=== PATIENT | female | born 1995 ===

== ENCOUNTER 2023-05-12 11:24 | Emergency (ER) | payer OTHER, SELFPAY ==
--- OUTSIDE RECORDS SUMMARY | 2023-05-12 11:28 | XMS REPORT | Continuity of Care Document ---
:1995 Author Organization [facility] t Address [address] [place] [id number] [place] [id number] Care Team Providers Name Role Phone IBRAHIMA MARTEL Attending Clinician Unavailable Problems This patient has no known problems. Allergies, Adverse Reactions, Alerts Allergy Allergy Status Severity Reaction(s) Onset Inactive Treating Comm ents Source Name Type Date Date Clinician HYDROCOD DRUG Active Hives [facility] ONE-ACET 3-20 ity of AMINOPHE 00:00: [address] P[place]IC[place] Drug Active Hives [facility] INS Class 3-20 ity of 00:00: [address] CODEINE DRUG Active Rash 2015- [facility] INGREDI 5-28 ity of 00:00: [address] HYDROMOR DRUG Active Hives [facility] PHONE 5-28 ity of (BULK) 00:00: [address] Medications This patient has no known medications. Procedures This patient has no known procedures. Results This patient has no known results.
[2023-05-12 12:03] LABS: Specific Gravity 1.026 (1.005-1.030)
[2023-05-12 12:16] LABS: Specific Gravity 1.026 (1.005-1.030); Urine Bacteria 20-50 /HPF (<20); Urine Bilirubin NEGATIVE (Negative); Urine Blood 3+ (OVER) (Negative); Urine Clarity Extremely Turbid (Clear); Urine Color Yellow (Yellow); Urine Glucose NEGATIVE (Negative); Urine Mucus 4+ /HPF (None Seen); Urine Protein 1+ (Negative); Urine Urobilinogen Normal (Normal); Urine pH 5.5 (5.0-7.0)
[2023-05-12 12:40] LABS: Absolute Lymphocytes (CBC) 1.7 K/uL (0.7-4.9); Hematocrit 43.2 % (36.0-45.0); Lymphocytes % 20.2 % (15.3-44.8); MCV 90.3 fL (80-100); MPV 10.5 fL (7.6-11.3); RBC Red Blood Cell Count 4.78 M/uL (3.86-4.86)
[2023-05-12 12:57] LABS: Potassium 3.9 mEq/L (3.5-5.1)
--- NOTE | 2023-05-12 15:57 | RAD REPORT ---
EXAM DESCRIPTION: US - Transvaginal Study Probe - 05/12/2023 2:28 pm CLINICAL HISTORY: VAGINAL BLEEDING Pelvic pain. COMPARISON: <Comparisons> FINDINGS: The uterus is normal in size, shape and echotexture. The uterus measures 6.2 x 5.1 x 3.2 c m. The endometrial stripe measures 5 mm, normal. Both ovaries are normal in size, shape and echotexture. The right ovary measures 3.8 x 3.3 x 2.3 cm. The left ovary measures 2.4 x 2.9 x 1.8 cm. No ovarian or parovarian lesions. No adnexal masses. Normal Doppler blood flow was demonstrated to both ovaries. No significant pelvic ascites. IMPRESSION: Unremarkable study.
--- NOTE | 2023-05-12 16:00 | EDPHYS ---
Physician Documentation [facility] Name: Becky Moore Age: 28 yrs Sex: Female : 1995 Arrival Date: 05/12/2023 Time: 11:24 Bed 10 Private MD: ED Physician Ruben Choi HPI: 05/12 13:36 This 28 yrs old Female presents to ER via Ambulatory with complaints of Vaginal sb4 Bleeding, + Preg <12wks. 13:36 The patient presents to the emergency department with vaginal bleeding, that is light, sb4 with no clots. The estimated gestational age is 2 weeks. course: care: none, Leakage of Fluid: none appreciated, Ultrasound: the patient has not had an ultrasound, Risk/complications: no obvious risks or complications are appreciated. Previous pregnancies:. Associated signs and symptoms: The patient has no apparent associated signs or symptoms. The patient has not recently seen a physician. 28 year old female states she had 2 positive tests last week and started bleeding this morning. She states she has been spotting but today she had dark red blood that has slowly turned into bright red blood. She denies any abdominal pain. She states she has had several miscarriages before, estimates at least 6 or 7. 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 - Social history:: Smoking status: Patient reports the use of cigarette tobacco products. ROS: 13:36 Constitutional: Negative for fever, chills, and weight loss, Eyes: Negative for injury, sb4 pain, redness, and discharge, Cardiovascular: Negative for chest pain, palpitations, and edema, Respiratory: Negative for shortness of breath, cough, wheezing, and pleuritic chest pain, Abdomen/GI: Negative for abdominal pain, nausea, vomiting, diarrhea, and constipation, MS/Extremity: Negative for injury and deformity, Skin: Negative for injury, rash, and discoloration. 13:36 : Positive for vaginal bleeding, Negative for urinary symptoms, urinary frequency, hematuria. 13:36 All other systems are negative. Exam: 13:36 Constitutional: This is a well developed, well nourished patient who is awake, alert, sb4 and in no acute distress. Head/Face: Normocephalic, atraumatic. Eyes: Extra-ocular motions intact. Periorbital areas with no swelling, redness, or edema. ENT: Mucous membranes moist. Cardiovascular: Regular rate and rhythm with a normal S1 and S2. Respiratory: Lungs have equal breath sounds bilaterally, clear to auscultation and percussion. No rales, rhonchi or wheezes noted. No increased work of breathing, no retractions or nasal flaring. Abdomen/GI: Soft, non-tender, no distension. Skin: Warm, dry with normal turgor. Normal color with no rashes, no lesions, and no evidence of cellulitis. MS/ Extremity: Pulses equal, no cyanosis. Neurovascular intact. Full, normal range of motion. Neuro: Awake and alert, GCS 15, oriented to person, place, time, and situation. Cranial nerves II-XII grossly intact. Motor strength 5/5 in all extremities. Sensory grossly intact. Cerebellar exam normal. Normal gait. Vital Signs: 11:38 BP 131 / 89; Pulse 75; Resp 18 S; Temp 97.2(TE); Pulse Ox 99% on R/A; aa5 13:18 BP 128 / 82; Pulse 76; Resp 16; Pulse Ox 99% ; ko1 16:06 BP 113 / 93; Pulse 85; Resp 16 S; Pulse Ox 100% on R/A; kc6 MDM: 11:27 Patient medically screened. sb4 13:36 Differential diagnosis: threatened Ab, inevitable Ab, missed Ab, ectopic . sb4 16:02 Data reviewed: vital signs, nurses notes, lab test result(s), radiologic studies, I sb4 have discussed the patient's presentation/case with the attending Emergency Department Physician; and as a result, I will discharge patient. Care significantly affected by the following Social Determinants of Health: Poor access to healthcare and/or lack of insurance. Counseling: I had a detailed discussion with the patient and/or guardian regarding: the historical points, exam findings, and any diagnostic results supporting the discharge/admit diagnosis, lab results, radiology results, the need for outpatient follow up, an OB/Gyne specialist, to return to the emergency department if symptoms worsen or persist or if there are any questions or concerns that arise at home. 16:02 Discussion of test interpretation with radiology: I had a discussion with radiology sb4 regarding a test interpretation. ultrasound not showing any signs of intrauterine . ED course: Discussed the lab findings and radiology results with patient. She understands that her ultrasound did not show any clear signs of a viable . She understands to follow-up in 48 hours to get her beta-hCG tested. She has an appointment with [facility] tomorrow.. 05/12 11:43 Order name: Abo/rh Typing; Complete Time: 13:20 sb4 05/12 11:43 Order name: Basic Metabolic Panel; Complete Time: 13:20 sb4 05/12 11:43 Order name: CBC with Diff; Complete Time: 13:20 sb4 05/12 11:43 Order name: Test, Urine; Complete Time: 12:04 sb4 05/12 11:43 Order name: Quantitative Hcg; Complete Time: 13:20 sb4 05/12 11:43 Order name: Urinalysis w/ reflexes; Complete Time: 12:33 sb4 05/12 14:30 Order name: Transvaginal Study Probe; Complete Time: 15:59 [facility] 05/12 11:43 Order name: IV Saline Lock; Complete Time: 12:49 sb4 05/12 11:43 Order name: Labs collected and sent; Complete Time: 12:28 sb4 Administered Medications: No medications were administered Point of Care Testing: Urine : 12:50 hCG Reading: Positive; ko1 Disposition: 16:32 Co-signature as Attending Physician, Ruben Choi MD I agree with the assessment and kdr plan of care. Disposition Summary: 05/12/23 16:00 Discharge Ordered Location: Home sb4 Problem: new sb4 Symptoms: are unchanged sb4 Condition: Stable sb4 Diagnosis - Other specified abnormal uterine and vaginal bleeding sb4 Followup: sb4 - With: Private Physician - When: 48 Hours - Reason: Repeat Beta-HCG (48 Hours) Forms: - Medication Reconciliation Form sb4 - Thank You Letter sb4 - Antibiotic Education sb4 - Prescription Opioid Use sb4 - Patient Portal Instructions sb4 Signatures: Dispatcher MedHoGallup Indian Medical CenterRuben Elder MD MD kdr Calderon, Audri, RN RN aa5 Dora Linton, PAAlvinoC PAUnique sb4 Corrections: (The following items were deleted from the chart) 14:30 13:21 Transvaginal Ob+US.RAD.BRZ ordered. EDMS EDMS
--- NOTE | 2023-05-12 16:00 | ER ---
Nurse's Notes [facility] Name: Becky Moore Age: 28 yrs Sex: Female : 1995 Arrival Date: 05/12/2023 Time: 11:24 Bed 10 Private MD: Diagnosis: Other specified abnormal uterine and vaginal bleeding Presentation: 05/12 11:38 Chief complaint: Patient states: 2 positive test 1 week ago, has initial aa5 appointment with [facility] clinic tomorrow but today she started with vaginal bleeding. 11:38 Acuity: ERIN 3 aa5 11:38 Coronavirus screen: At this time, the client does not indicate any symptoms associated aa5 with coronavirus-19. Ebola Screen: Patient denies travel to an Ebola-affected area in the 21 days before illness onset. Initial Sepsis Screen: Does the patient meet any 2 criteria? No. Patient's initial sepsis screen is negative. Does the patient have a suspected source of infection? No. Patient's initial sepsis screen is negative. Risk Assessment: Do you want to hurt yourself or someone else? Patient reports no desire to harm self or others. Onset of symptoms was May 12, 2023. 11:38 Method Of Arrival: Ambulatory aa5 Triage Assessment: 12:50 General: Appears in no apparent distress. comfortable, Behavior is calm, cooperative, ko1 appropriate for age. Pain: Denies pain. EENT: No deficits noted. Neuro: No deficits noted. Cardiovascular: No deficits noted. Respiratory: No deficits noted. GI: No deficits noted. : No deficits noted. Derm: No deficits noted. Musculoskeletal: No deficits noted. 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 - Social history:: Smoking status: Patient reports the use of cigarette tobacco products. Screenin:29 [facility] ED Fall Risk Assessment (Adult) History of falling in the last 3 months, ko1 including since admission No falls in past 3 months (0 pts) Confusion or Disorientation No (0 pts) Intoxicated or Sedated No (0 pts) Impaired Gait No (0 pts) Mobility Assist Device Used No (0 pt) Altered Elimination No (0 pt) Score/Fall Risk Level 0 - 2 = Low Risk Oriented to surroundings, Maintained a safe environment, Educated pt \T\ family on fall prevention, incl call for assistance when getting out of bed, Assessed \T\ reinforced patient's understanding of fall precautions, Provided non-skid footwear, Hourly rounding (assess needs \T\ fall precautionary measures) done, Used ambulatory aids as needed (educated on \T\ assisted with). Abuse screen: Denies threats or abuse. Denies injuries from another. Nutritional screening: No deficits noted. Tuberculosis screening: No symptoms or risk factors identified. Assessment: 11:48 Reassessment: urine collected and sent to lab . aa5 12:51 Obstetrical Assessment: General assessment: awake and alert, skin warm and dry, vaginal ko1 bleeding started today. Pain: Denies pain. : No deficits noted. 15:15 Reassessment: Patient appears in no apparent distress at this time. Patient and/or kc6 family updated on plan of care and expected duration. Pain level reassessed. Patient is alert, oriented x 3, equal unlabored respirations, skin warm/dry/pink. Vital Signs: 11:38 BP 131 / 89; Pulse 75; Resp 18 S; Temp 97.2(TE); Pulse Ox 99% on R/A; aa5 13:18 BP 128 / 82; Pulse 76; Resp 16; Pulse Ox 99% ; ko1 16:06 BP 113 / 93; Pulse 85; Resp 16 S; Pulse Ox 100% on R/A; kc6 ED Course: 11:26 Patient arrived in ED. mg5 11:27 Dora Linton PA-C is PHCP. sb4 11:27 Ruben Choi MD is Attending Physician. sb4 11:38 Arm band placed on. aa5 11:40 Triage completed. aa5 12:28 Abo/rh Typing Sent. ko1 12:29 Sharmaine Smith, VINCENZO is Primary Nurse. ko1 12:29 Patient has correct armband on for positive identification. Bed in low position. Call ko1 light in reach. Provided Education on: NA. 12:29 Inserted saline lock: 20 gauge in right antecubital area, using aseptic technique. ko1 Blood collected. 12:49 Abo/rh Typing Sent. ko1 12:49 Basic Metabolic Panel Sent. ko1 12:49 Quantitative Hcg Sent. ko1 14:30 Transvaginal Study Probe In Process Unspecified. EDMS 15:15 Report received from Sharmaine Smith, VINCENZO. kc6 16:05 No provider procedures requiring assistance completed. IV discontinued, intact, kc6 bleeding controlled, No redness/swelling at site. Pressure dressing applied. Administered Medications: No medications were administered Medication: 12:51 VIS not applicable for this client. ko1 Point of Care Testing: Urine : 12:50 hCG Reading: Positive; ko1 Outcome: 16:00 Discharge ordered by MD. sb4 16:05 Discharged to home ambulatory, with friend. kc6 16:05 Condition: stable 16:05 Discharge instructions given to patient, Instructed on discharge instructions, follow up and referral plans. Demonstrated understanding of instructions, follow-up care. 16:06 Patient left the ED. kc6 Signatures: Dispatcher [employer] Ailyn Graves RN RN aa5 Veronica Granger RN RN kc6 Sharmaine Smith RN RN ko1 Dora Linton, PA-C PA-C norman4 Dayami Arana mg5 Corrections: (The following items were deleted from the chart) 11:40 11:38 Chief complaint: Patient states: 2 positive test 1 week ago, has aa5 initial appointment with [facility] clinic tomorrow but today aa5 14:30 14:17 In radiology for Transvaginal Ob+US.RAD.BRUNO. EDMS EDMS
[2023-05-12 16:23] VITALS: TEMP 97.2
[2023-05-12 16:26] VITALS: BP 113/93; O2SAT 100
== END 2023-05-12 16:06 | disposition home or self-care (01) ==
LOC: ER 11:24
DX: N93.8 Other specified abnormal uterine and vaginal bleeding (principal)
CPT/HCPCS: 36415; 76830; 80048; 81001; 81025; 84702; 85025; 86900; 86901